=== PATIENT | female | born 1985 | race African-American/Black ===

== ENCOUNTER 2024-05-01 19:58 | Emergency (ER) | payer MEDICAID ==
[~2024-05-01] VITALS: Ht 170.2 cm; Wt 83.9 kg
[2024-05-01 20:08] VITALS: O2SAT 99
[2024-05-01] MEDS: KETOROLAC 30MG/ML VIAL IM ONE (21:45)
[2024-05-01] MEDS: CYCLOBENZAPRINE 10MG TABLET PO ONE (21:45)
[2024-05-01] MEDS ORDERED: IBUP-2029 MT (22:09)
[2024-05-01] MEDS ORDERED: CYCL10TA21 MT (22:09)
[2024-05-01 22:30] VITALS: BP 131/91; PULSE 67; RESP 18; TEMP 36.83628; O2SAT 100
== END 2024-05-01 22:30 | disposition home or self-care (01) ==
LOC: ER 19:58
DX: S20.211A Contusion of right front wall of thorax, initial encounter (principal); S80.11XA Contusion of right lower leg, initial encounter; V03.10XA Pedestrian on foot injured in collision with car, pick-up truck or van in traffic accident, initial encounter; Y93.89 Activity, other specified; Y92.89 Other specified places as the place of occurrence of the external cause; Y99.8 Other external cause status
CPT/HCPCS: 99284; 73502; 73552; 71101; 96372; J1885